=== PATIENT | female | born 1940 | race Caucasian/White ===

== ENCOUNTER 2022-12-23 08:34 | Day surgery (SDC) | payer MEDICARE ==
[~2022-12-23 08:34] MED LIST: Propofol 200 MG/20 ML SDV ONE
[2022-12-23] MEDS ORDERED: Sodium Chloride 0.9% 1,000 ML IV SCH (09:15)
== END 2022-12-23 11:35 | disposition home or self-care (01) ==
LOC: JP.SDS 08:34
PROVIDERS: ATTEND Surgery
DX: R13.10 Dysphagia, unspecified (principal); K22.2 Esophageal obstruction; K22.10 Ulcer of esophagus without bleeding; K44.9 Diaphragmatic hernia without obstruction or gangrene; E11.22 Type 2 diabetes mellitus with diabetic chronic kidney disease; N18.9 Chronic kidney disease, unspecified; D68.2 Hereditary deficiency of other clotting factors; D64.9 Anemia, unspecified
CPT/HCPCS: 43239; 43249; 88305; 88312; 88341; 88342; C1726; J2704; J7030

== ENCOUNTER 2024-06-05 10:53 | Emergency (ER) | payer MEDICARE ==
[2024-06-05 11:37] LABS: BASOPHILS PERCENT AUTO 0.2 % (0.1-1.3); EOSINOPHILS ABSOLUTE AUTO 0.04 K/uL (0.00-0.40); EOSINOPHILS PERCENT AUTO 0.4 % (0.0-5.4); HEMATOCRIT 21.9 % (34.3-46.0); IMMATURE GRAN ABSOLUTE AUTO 0.04 K/uL (0.00-0.23); IMMATURE GRAN PERCENT AUTO 0.4 % (0.0-0.7); LYMPHOCYTES ABSOLUTE AUTO 1.41 K/uL (0.8-3.3); LYMPHOCYTES PERCENT AUTO 13.2 % (11.4-47.7); MEAN CORPUSCULAR HEMOGLOBIN 24.9 pg (31.6-35.5); MEAN CORPUSCULAR HGB CONC 31.5 g/dL (31.6-35.5); MEAN CORPUSCULAR VOLUME 79.1 fL (81.4-99.0); MONOCYTES PERCENT AUTO 7.5 % (3.3-12.6); NEUTROPHILS ABSOLUTE AUTO 8.39 K/uL (1.0-7.6); NEUTROPHILS PERCENT AUTO 78.3 % (40.0-78.1); PLATELET COUNT,PLT 216 K/uL (130-375); RED BLOOD CELL COUNT 2.77 M/uL (3.77-5.24); WHITE BLOOD CELL COUNT,WBC 10.7 K/uL (3.2-11.0)
[2024-06-05 11:46] LABS: BASOPHILS ABSOLUTE AUTO 0.02 K/uL (0.00-0.10); HEMOGLOBIN 6.9 g/dL (11.2-15.5)
[2024-06-05 12:01] LABS: A/G RATIO 0.8 (1.2-2.2); ALANINE AMINOTRANSFERASE,ALT 20 U/L (12-78); ALBUMIN 2.8 g/dL (3.4-5.0); ALKALINE PHOSPHATASE 75 U/L (46-116); ASPARTATE AMNIOTRANSFERASE,AST 30 U/L (15-37); BILIRUBIN TOTAL 0.4 mg/dL (0.2-1.0); BLOOD UREA NITROGEN,BUN 48 mg/dL (7-18); CALCIUM 8.4 mg/dL (8.5-10.1); CARBON DIOXIDE,CO2 34 mmol/L (21-32); CHLORIDE,CL 97 mmol/L (100-108); CREATININE 2.6 mg/dL (0.6-1.0); EST CRCL DRUG DOSING (CG) 12.76 mL/min; ESTIMATED GFR 18 mL/min (>60); GLUCOSE RANDOM 145 mg/dL (74-106); POTASSIUM,K 3.5 mmol/L (3.6-5.2); PROTEIN TOTAL,TP 6.3 g/dL (6.4-8.2); SODIUM,NA 141 mmol/L (140-148)
[2024-06-05 12:03] LABS: ANION GAP 13.5 mmol/L (5.0-14.0)
[2024-06-05] MEDS: Sodium Chloride 0.9% 1,000 ML IV ONE (12:03)
[2024-06-05] MEDS: Pantoprazole 40 MG Vial IVPUSH ONE (12:10)
[2024-06-05] MEDS: Iopamidol 612 MG/ML 100 ML Bottle IV PRN (13:12)
[2024-06-05] MEDS: Sodium Chloride 0.9% 60 ML IV ONE (13:12)
[2024-06-05] MEDS: Sodium Chloride 0.9% 10 ML Syringe FLUSH PRN (13:12)
[2024-06-05] MEDS ORDERED: Naloxone 0.4 MG/ML SDV IVPUSH PRN (14:52)
[2024-06-05] MEDS: HYDROmorphone 0.5 MG/0.5 ML Syringe IVPUSH ONE (15:00)
[2024-06-05] MEDS: Sodium Chloride 0.9% 1,000 ML IV SCH (17:28)
== END 2024-06-05 22:47 ==
LOC: JP.ED 10:53
DX: K92.2 Gastrointestinal hemorrhage, unspecified (principal); E11.9 Type 2 diabetes mellitus without complications; Z79.84 Long term (current) use of oral hypoglycemic drugs; Z79.899 Other long term (current) drug therapy; Z87.891 Personal history of nicotine dependence
CPT/HCPCS: 36415; 36430; 70450; 74177; 80053; 85025; 86850; 86900; 86901; 86920; 86922; 87428; 96361; 96374; 96375; 99285; J2470; J7030; P9016; Q9967

== ENCOUNTER 2024-08-04 10:24 | Inpatient (IN) | payer MEDICARE ==
[2024-08-04 10:54] LABS: BASOPHILS ABSOLUTE AUTO 0.03 K/uL (0.00-0.10); BASOPHILS PERCENT AUTO 0.2 % (0.1-1.3); HEMATOCRIT 27.1 % (34.3-46.0); IMMATURE GRAN ABSOLUTE AUTO 0.15 K/uL (0.00-0.23); IMMATURE GRAN PERCENT AUTO 0.8 % (0.0-0.7); LYMPHOCYTES PERCENT AUTO 4.3 % (11.4-47.7); MEAN CORPUSCULAR HGB CONC 33.2 g/dL (31.6-35.5); MEAN CORPUSCULAR VOLUME 87.4 fL (81.4-99.0); MONOCYTES ABSOLUTE AUTO 0.71 K/uL (0.20-0.90); MONOCYTES PERCENT AUTO 3.8 % (3.3-12.6); NEUTROPHILS ABSOLUTE AUTO 17.13 K/uL (1.0-7.6); NEUTROPHILS PERCENT AUTO 90.9 % (40.0-78.1); PLATELET COUNT,PLT 197 K/uL (130-375); WHITE BLOOD CELL COUNT,WBC 18.8 K/uL (3.2-11.0)
[2024-08-04 11:23] LABS: A/G RATIO 0.8 (1.2-2.2); ALANINE AMINOTRANSFERASE,ALT 21 U/L (12-78); ALBUMIN 2.6 g/dL (3.4-5.0); ALKALINE PHOSPHATASE 147 U/L (46-116); ASPARTATE AMNIOTRANSFERASE,AST 13 U/L (15-37); BILIRUBIN TOTAL 0.5 mg/dL (0.2-1.0); BLOOD UREA NITROGEN,BUN 66 mg/dL (7-18); CALCIUM 8.2 mg/dL (8.5-10.1); CARBON DIOXIDE,CO2 21 mmol/L (21-32); CHLORIDE,CL 91 mmol/L (100-108); EST CRCL DRUG DOSING (CG) 10.74 mL/min; ESTIMATED GFR 15 mL/min (>60); POTASSIUM,K 4.6 mmol/L (3.6-5.2); SODIUM,NA 128 mmol/L (140-148)
[2024-08-04 11:24] LABS: ANION GAP 20.6 mmol/L (5.0-14.0); GLUCOSE RANDOM 682 mg/dL (74-106)
[2024-08-04 11:28] LABS: CORONAVIRUS COVID-19 NAA NEGATIVE (NEGATIVE); INFLUENZA A NAA NEGATIVE (NEGATIVE); INFLUENZA B NAA NEGATIVE (NEGATIVE); RESPIRATORY SYNCYTIAL VIR NAA NEGATIVE (NEGATIVE)
[2024-08-04] MEDS ORDERED: Glucagon,Human Recombinant 1 MG Vial IM PRN ×2 (12:16→14:58)
[2024-08-04] MEDS ORDERED: 50% Dextrose in Water 50 ML Syringe IVPUSH PRN ×2 (12:16→14:58)
[2024-08-04 12:26] LABS: BASE EXCESS VENOUS -6.2 mm/L; METHEMOGLOBIN 0.7 %; O2 SATURATION VENOUS 77.4; OXYHEMOGLOBIN 76.7 %; PCO2 VENOUS 38.8 mm/Hg; PH,VENOUS 7.311 (7.350-7.450)
[2024-08-04 12:27] LABS: CARBOXYHEMOGLOBIN < 0.5 % (0.0-1.6)
[2024-08-04] MEDS: Insulin Regular in 0.9 % NACL 100 ML IV SCH ×2 (13:19→15:58)
[2024-08-04] MEDS: cefTRIAXone 2 GM in Sodium Chloride 0.9% 50 ML IV ONE (13:27)
[2024-08-04] MEDS: Potassium Chloride 20 MEQ in Premix Bag 1 BAG IV ONE ×2 (13:27→16:37)
[2024-08-04] MEDS: Sodium Chloride 0.9% 1,000 ML IV SCH (13:28)
[2024-08-04 13:57] LABS: APPEARANCE,URINE SLIGHTLY CLOUDY (CLEAR); BILIRUBIN,URINE NEGATIVE (NEGATIVE); COLOR,URINE YELLOW (YELLOW); GLUCOSE,URINE 500 mg/dL (NEGATIVE); KETONES,URINE NEGATIVE (NEGATIVE); LEUKOCYTE ESTERASE,URINE SMALL (NEGATIVE); NITRITE,URINE NEGATIVE (NEGATIVE); OCCULT BLOOD,URINE TRACE-INTACT (NEGATIVE); PH,URINE 5.5 (5.0-8.0); PROTEIN,URINE NEGATIVE (NEGATIVE); UROBILINOGEN,URINE 0.2 EU/dL (0.2-1.0)
[2024-08-04 14:09] LABS: AMORPHOUS SEDIMENT,URINE NOT SEEN; BACTERIA,URINE MANY; EPITHELIAL CELLS,URINE RARE; MUCUS,URINE FEW; RBC,URINE 0-5 (0-5)
[2024-08-04 14:42] LABS: PHOSPHORUS 6.4 mg/dL (2.5-4.9); POTASSIUM,K 3.5 mmol/L (3.6-5.2)
[2024-08-04] MEDS ORDERED: Potassium Chloride 10% 20 MEQ/15 ML Soln 15 ML UD Cup PO PRN ×2 (14:58)
[2024-08-04] MEDS ORDERED: Potassium Chloride 20 MEQ in Premix Bag 1 BAG IV PRN (14:58)
[2024-08-04] MEDS ORDERED: Albuterol 0.083% 2.5 MG/3 ML Neb Soln NEB PRN (14:58)
[2024-08-04] MEDS ORDERED: Polyethylene Glycol 3350 Powder 17 GM Packet PO PRN (14:58)
[2024-08-04] MEDS ORDERED: Sodium Phosphate 45 MMOLE in Sodium Chloride 0.9% 250 ML IV PRN (14:58)
[2024-08-04] MEDS ORDERED: Sodium Chloride 0.9% 10 ML Syringe FLUSH PRN (14:58)
[2024-08-04] MEDS: Acetaminophen 325 MG Tab PO PRN (15:55)
[2024-08-04] MEDS: oxyCODONE 5 MG Tab PO PRN (15:56)
[2024-08-04] MEDS: Sodium Chloride 0.9% 2,000 ML IV PRN (16:34)
[2024-08-04] MEDS: Enoxaparin 30 MG/0.3 ML Syringe SUBCUT SCH (16:34)
[2024-08-04] MEDS: Aspirin 81 MG Tab.Chew PO SCH (16:35)
[2024-08-04] MEDS: glipiZIDE 5 MG Tab PO SCH (16:36)
[2024-08-04] MEDS: Tamsulosin 0.4 MG Cap.ER PO SCH (16:36)
[2024-08-04] MEDS: atorvaSTATin 20 MG Tab PO SCH (16:38)
[2024-08-04] MEDS: predniSONE 5 MG Tab PO SCH (16:39)
[2024-08-04] MEDS: Sennosides/Docusate Sodium 50-8.6 MG Tab PO SCH (16:40)
[2024-08-04] MEDS: Levothyroxine 50 MCG Tab PO SCH (16:40)
[2024-08-04] MEDS: Pantoprazole 40 MG Delayed-Release Granules 1 Packet PO SCH (16:41)
[2024-08-04] MEDS: amLODIPine 5 MG Tab PO SCH (16:46)
[2024-08-04] MEDS: Empagliflozin 10 MG Tab PO SCH (17:05)
[2024-08-04 17:35] LABS: ANION GAP 18.6 mmol/L (5.0-14.0); CALCIUM 7.9 mg/dL (8.5-10.1); CREATININE 2.9 mg/dL (0.6-1.0); EST CRCL DRUG DOSING (CG) 11.11 mL/min; POTASSIUM,K 3.6 mmol/L (3.6-5.2)
[2024-08-04] MEDS: Potassium Chloride 10% 20 MEQ/15 ML Soln 15 ML UD Cup PO PRN (18:14)
[2024-08-04] MEDS: Ondansetron 4 MG/2 ML SDV IV PRN (18:14)
[2024-08-04 19:23] LABS: CALCIUM 7.8 mg/dL (8.5-10.1); CREATININE 2.6 mg/dL (0.6-1.0); EST CRCL DRUG DOSING (CG) 11.06 mL/min; POTASSIUM,K 4.7 mmol/L (3.6-5.2)
[2024-08-04 19:25] LABS: ANION GAP 19.7 mmol/L (5.0-14.0)
[2024-08-04] MEDS: Hypromellose 0.3% Ophth Soln 15 ML Bottle EYEBOTH SCH (20:46)
[2024-08-04] MEDS: Dextrose 5%-0.45% NaCl 1,000 ML IV PRN (21:24)
[2024-08-04 21:30] LABS: MAGNESIUM 1.6 mg/dL (1.8-2.4); PHOSPHORUS 3.6 mg/dL (2.5-4.9); POTASSIUM,K 4.2 mmol/L (3.6-5.2)
[2024-08-04] MEDS: Magnesium Sulf/Wat 2 GM/50 mL 50 ML IV PRN (21:34)
[2024-08-04 23:20] LABS: CALCIUM 7.5 mg/dL (8.5-10.1); CREATININE 2.3 mg/dL (0.6-1.0); EST CRCL DRUG DOSING (CG) 12.51 mL/min; POTASSIUM,K 4.3 mmol/L (3.6-5.2)
[2024-08-04 23:27] LABS: ANION GAP 15.3 mmol/L (5.0-14.0)
[2024-08-05 03:18] LABS: CALCIUM 7.6 mg/dL (8.5-10.1); CREATININE 2.2 mg/dL (0.6-1.0); EST CRCL DRUG DOSING (CG) 13.08 mL/min; MAGNESIUM 2.2 mg/dL (1.8-2.4); PHOSPHORUS 3.8 mg/dL (2.5-4.9); POTASSIUM,K 4.5 mmol/L (3.6-5.2)
[2024-08-05 03:20] LABS: ANION GAP 14.5 mmol/L (5.0-14.0)
[2024-08-05 05:07] LABS: HEMATOCRIT 22.3 % (34.3-46.0); HEMOGLOBIN 7.4 g/dL (11.2-15.5); MEAN CORPUSCULAR HEMOGLOBIN 28.8 pg (31.6-35.5); MEAN CORPUSCULAR HGB CONC 33.2 g/dL (31.6-35.5); MEAN CORPUSCULAR VOLUME 86.8 fL (81.4-99.0); RED BLOOD CELL COUNT 2.57 M/uL (3.77-5.24); WHITE BLOOD CELL COUNT,WBC 15.3 K/uL (3.2-11.0)
[2024-08-05 07:17] LABS: HEMOGLOBIN A1C 12.5 % (4.5-6.2)
[2024-08-05 07:27] LABS: CALCIUM 7.7 mg/dL (8.5-10.1); CREATININE 2.2 mg/dL (0.6-1.0); EST CRCL DRUG DOSING (CG) 13.08 mL/min; POTASSIUM,K 4.7 mmol/L (3.6-5.2)
[2024-08-05 07:33] LABS: ANION GAP 12.7 mmol/L (5.0-14.0)
[2024-08-05 09:26] LABS: MAGNESIUM 2.2 mg/dL (1.8-2.4); PHOSPHORUS 3.1 mg/dL (2.5-4.9)
[2024-08-05] MEDS: Furosemide 40 MG Tab PO SCH (09:35)
[2024-08-05] MEDS ORDERED: Glucose Gel 15 GM in 37.5 GM Tube PO PRN (09:36)
[2024-08-05] MEDS ORDERED: 50% Dextrose in Water 50 ML Syringe IV PRN (09:36)
[2024-08-05] MEDS: Fluticasone NASAL Spray 16 GM Bottle NASBOTH SCH (10:07)
[2024-08-05] MEDS: Insulin Glargine,Human Rec. Analog 100 Units/ML 3 ML Pen SUBCUT SCH (10:08)
[2024-08-05] MEDS: Cetirizine 10 MG Tab PO SCH (10:14)
[2024-08-05] MEDS: Insulin Lispro 100 Unit/ML 3 ML KwikPen SUBCUT SCH (13:27)
[2024-08-05] MEDS: cefTRIAXone 1 GM in Sodium Chloride 0.9% 50 ML IV SCH (14:10)
[2024-08-05 17:20] LABS: ANION GAP 16.5 mmol/L (5.0-14.0); CALCIUM 8.1 mg/dL (8.5-10.1); CREATININE 2.3 mg/dL (0.6-1.0); EST CRCL DRUG DOSING (CG) 12.51 mL/min; POTASSIUM,K 4.5 mmol/L (3.6-5.2)
[2024-08-05 17:34] LABS: IRON,FE 37 ug/dL (50-170); PERCENT FE SATURATION 29 % (20-55); TOTAL IRON BINDING CAPACITY 127 ug/dl (250-450)
[2024-08-06 05:56] LABS: HEMATOCRIT 23.3 % (34.3-46.0); HEMOGLOBIN 7.8 g/dL (11.2-15.5); MEAN CORPUSCULAR HGB CONC 33.5 g/dL (31.6-35.5); MEAN CORPUSCULAR VOLUME 86.6 fL (81.4-99.0); RED BLOOD CELL COUNT 2.69 M/uL (3.77-5.24); WHITE BLOOD CELL COUNT,WBC 10.8 K/uL (3.2-11.0)
[2024-08-06 06:25] LABS: POTASSIUM,K 3.9 mmol/L (3.6-5.2)
[2024-08-06 06:26] LABS: CALCIUM 8.3 mg/dL (8.5-10.1); CREATININE 2.3 mg/dL (0.6-1.0); EST CRCL DRUG DOSING (CG) 12.51 mL/min; MAGNESIUM 2.1 mg/dL (1.8-2.4); TSH ULTRASENSITIVE 6.913 uIU/mL (0.358-3.740)
[2024-08-06 06:28] LABS: ANION GAP 14.9 mmol/L (5.0-14.0)
[2024-08-06] MEDS: Insulin Glargine,Human Rec. Analog 100 Units/ML 3 ML Pen SUBCUT SCH (08:38)
[2024-08-06] MEDS: Cephalexin 250 MG Cap PO SCH (08:39)
== END 2024-08-06 11:26 | disposition home or self-care (01) | DRG 638 ==
LOC: JP.ED 10:24 → JP.ICU 13:49
PROVIDERS: ADMIT Hospitalist; ATTEND Internal Medicine
PROC: 4A033R1 Measurement of Arterial Saturation, Peripheral, Percutaneous Approach (ICD-10-PCS; principal; 2024-08-04)
DX: E11.00 Type 2 diabetes mellitus with hyperosmolarity without nonketotic hyperglycemic-hyperosmolar coma (NKHHC) (principal); E87.20 Acidosis, unspecified; N17.9 Acute kidney failure, unspecified; Z79.890 Hormone replacement therapy; N30.00 Acute cystitis without hematuria; N18.4 Chronic kidney disease, stage 4 (severe); Z66 Do not resuscitate; H54.7 Unspecified visual loss; K21.9 Gastro-esophageal reflux disease without esophagitis; M19.90 Unspecified osteoarthritis, unspecified site; L89.301 Pressure ulcer of unspecified buttock, stage 1; F98.8 Other specified behavioral and emotional disorders with onset usually occurring in childhood and adolescence; D64.9 Anemia, unspecified; B96.20 Unspecified Escherichia coli [E. coli] as the cause of diseases classified elsewhere; I25.10 Atherosclerotic heart disease of native coronary artery without angina pectoris; E61.1 Iron deficiency; Z98.49 Cataract extraction status, unspecified eye; Z98.890 Other specified postprocedural states; Z79.899 Other long term (current) drug therapy; Z79.82 Long term (current) use of aspirin; Z79.52 Long term (current) use of systemic steroids; Z79.84 Long term (current) use of oral hypoglycemic drugs
CPT/HCPCS: 0241U; 36415; 71045; 80048; 80053; 81001; 82009; 82803; 82947; 83036; 83550; 83605; 83735; 84100; 84132; 84443; 85018; 85025; 85027; 87040; 87086; 87088; 87186; 96365; 96368; 99222; 99232; 99239; 99285; 99284; A9270-GY; J0696; J1650; J1815; J1815-GY; J2405; J3475; J3480; J7030; J7512

== ENCOUNTER 2024-10-04 11:22 | Inpatient (IN) | payer MEDICARE ==
[2024-10-04 12:36] LABS: BASOPHILS ABSOLUTE AUTO 0.03 K/uL (0.00-0.10); BASOPHILS PERCENT AUTO 0.3 % (0.1-1.3); EOSINOPHILS ABSOLUTE AUTO 0.03 K/uL (0.00-0.40); EOSINOPHILS PERCENT AUTO 0.3 % (0.0-5.4); HEMATOCRIT 24.9 % (34.3-46.0); HEMOGLOBIN 7.9 g/dL (11.2-15.5); IMMATURE GRAN ABSOLUTE AUTO 0.05 K/uL (0.00-0.23); IMMATURE GRAN PERCENT AUTO 0.5 % (0.0-0.7); LYMPHOCYTES ABSOLUTE AUTO 0.55 K/uL (0.8-3.3); LYMPHOCYTES PERCENT AUTO 5.1 % (11.4-47.7); MEAN CORPUSCULAR HEMOGLOBIN 29.3 pg (31.6-35.5); MEAN CORPUSCULAR HGB CONC 31.7 g/dL (31.6-35.5); MEAN CORPUSCULAR VOLUME 92.2 fL (81.4-99.0); MONOCYTES ABSOLUTE AUTO 0.42 K/uL (0.20-0.90); MONOCYTES PERCENT AUTO 3.9 % (3.3-12.6); NEUTROPHILS ABSOLUTE AUTO 9.61 K/uL (1.0-7.6); NEUTROPHILS PERCENT AUTO 89.9 % (40.0-78.1); PLATELET COUNT,PLT 283 K/uL (130-375); WHITE BLOOD CELL COUNT,WBC 10.7 K/uL (3.2-11.0)
[2024-10-04 12:55] LABS: CALCIUM 8.6 mg/dL (8.5-10.1); CREATININE 2.7 mg/dL (0.6-1.0); EST CRCL DRUG DOSING (CG) 11.93 mL/min
[2024-10-04 12:58] LABS: INR 1.1; PROTHROMBIN TIME 11.2 sec (9.2-10.6); PTT,PARTIAL THROMBOPLSTIN TIME 29.4 sec (21.8-27.3)
[2024-10-04] MEDS: ceFAZolin 2 GM in Premix Bag 1 BAG IV ONE (13:04)
[2024-10-04] MEDS ORDERED: Naloxone 0.4 MG/ML SDV IVPUSH PRN (13:11)
[2024-10-04] MEDS: Sodium Chloride 0.9% 1,000 ML IV ONE (13:23)
[2024-10-04] MEDS: fentaNYL 50 MCG/ML SDV IVPUSH ONE ×2 (13:24→14:50)
[2024-10-04] MEDS: Potassium Chloride 10 MEQ in Premix Bag 1 BAG IV SCH ×2 (13:27→19:44)
[2024-10-04] MEDS ORDERED: fentaNYL 100 MCG/2 ML SDV ONE (16:29)
[2024-10-04] MEDS ORDERED: Propofol 200 MG/20 ML SDV ONE (16:30)
[2024-10-04] MEDS ORDERED: Sodium Chloride 0.9% 10 ML ONE ×2 (17:01→17:03)
[2024-10-04] MEDS ORDERED: ePHEDrine 50 MG/ML SDV ONE (17:01)
[2024-10-04] MEDS ORDERED: ceFAZolin 1 GM Vial ONE (17:03)
[2024-10-04] MEDS ORDERED: Lactated Ringers 1,000 ML ONE (17:17)
[2024-10-04] MEDS ORDERED: Magnesium Hydroxide 400 MG/5 ML Susp 30 ML Cup PO PRN (18:38)
[2024-10-04] MEDS ORDERED: HYDROmorphone 1 MG/ML Syringe IVPUSH PRN (18:38)
[2024-10-04] MEDS ORDERED: Sennosides/Docusate Sodium 50-8.6 MG Tab PO PRN (18:38)
[2024-10-04] MEDS ORDERED: Ondansetron 4 MG/2 ML SDV IV PRN (18:38)
[2024-10-04] MEDS: Sodium Chloride 0.9% 1,000 ML IV SCH (19:13)
[2024-10-04 19:37] LABS: HEMOGLOBIN 7.6 g/dL (11.2-15.5)
[2024-10-04] MEDS: oxyCODONE 5 MG Tab PO PRN (19:43)
[2024-10-04] MEDS: Insulin Lispro 100 Unit/ML 3 ML KwikPen SUBCUT SCH (19:51)
[2024-10-04] MEDS: Insulin Lispro 100 Unit/ML 3 ML KwikPen SUBCUT ONE (21:29)
[2024-10-04] MEDS: Hypromellose 0.3% Ophth Soln 15 ML Bottle EYEBOTH SCH (21:30)
[2024-10-04] MEDS: Acetaminophen 500 MG Tab PO SCH (21:30)
[2024-10-05 06:18] LABS: HEMATOCRIT 26.6 % (34.3-46.0); HEMOGLOBIN 8.6 g/dL (11.2-15.5); MEAN CORPUSCULAR HEMOGLOBIN 28.8 pg (31.6-35.5); MEAN CORPUSCULAR HGB CONC 32.3 g/dL (31.6-35.5); RED BLOOD CELL COUNT 2.99 M/uL (3.77-5.24); WHITE BLOOD CELL COUNT,WBC 9.3 K/uL (3.2-11.0)
[2024-10-05 06:34] LABS: CREATININE 2.1 mg/dL (0.6-1.0); EST CRCL DRUG DOSING (CG) 15.34 mL/min; POTASSIUM,K 3.3 mmol/L (3.6-5.2)
[2024-10-05 06:37] LABS: ANION GAP 15.3 mmol/L (5.0-14.0)
[2024-10-05] MEDS: HYDROmorphone 0.5 MG/0.5 ML Syringe IVPUSH PRN (07:41)
[2024-10-05] MEDS: Pantoprazole 40 MG Delayed-Release Granules 1 Packet PO SCH (07:56)
[2024-10-05] MEDS: Levothyroxine 50 MCG Tab PO SCH (07:56)
[2024-10-05] MEDS: predniSONE 5 MG Tab PO SCH (08:00)
[2024-10-05] MEDS: Cholecalciferol (Vitamin D3) 25 MCG Tab PO SCH (08:00)
[2024-10-05] MEDS: Hypromellose 0.3% Ophth Soln 15 ML Bottle EYEBOTH SCH (08:00)
[2024-10-05] MEDS: Aspirin 81 MG Tab.EC PO SCH (08:01)
[2024-10-05] MEDS: Folic Acid 1 MG Tab PO SCH (08:01)
[2024-10-05] MEDS: Cetirizine 10 MG Tab PO SCH (08:01)
[2024-10-05] MEDS: Tamsulosin 0.4 MG Cap.ER PO SCH (08:01)
[2024-10-05] MEDS: Sennosides/Docusate Sodium 50-8.6 MG Tab PO SCH (08:01)
[2024-10-05] MEDS: Empagliflozin 10 MG Tab PO SCH (08:01)
[2024-10-05] MEDS: Apixaban 2.5 MG Tab PO SCH (08:02)
[2024-10-05] MEDS: atorvaSTATin 20 MG Tab PO SCH (08:02)
[2024-10-05] MEDS: Insulin Glargine,Human Rec. Analog 100 Units/ML 3 ML Pen SUBCUT SCH (08:02)
[2024-10-05] MEDS ORDERED: Pantoprazole 40 MG Delayed-Release Granules 1 Packet PO SCH (09:00)
[2024-10-05] MEDS ORDERED: Levothyroxine 50 MCG Tab PO SCH (09:00)
[2024-10-05] MEDS: Potassium Chloride 20 MEQ Tab.ER PO ONE (10:14)
[2024-10-05] MEDS: Fluticasone NASAL Spray 16 GM Bottle NASBOTH PRN (21:13)
[2024-10-06 05:47] LABS: HEMATOCRIT 24.4 % (34.3-46.0); HEMOGLOBIN 7.9 g/dL (11.2-15.5); MEAN CORPUSCULAR HEMOGLOBIN 28.7 pg (31.6-35.5); MEAN CORPUSCULAR HGB CONC 32.4 g/dL (31.6-35.5); MEAN CORPUSCULAR VOLUME 88.7 fL (81.4-99.0); RED BLOOD CELL COUNT 2.75 M/uL (3.77-5.24); WHITE BLOOD CELL COUNT,WBC 7.9 K/uL (3.2-11.0)
[2024-10-06 06:04] LABS: CALCIUM 8.2 mg/dL (8.5-10.1); CREATININE 2.4 mg/dL (0.6-1.0); EST CRCL DRUG DOSING (CG) 13.42 mL/min; POTASSIUM,K 4.8 mmol/L (3.6-5.2)
[2024-10-06 06:05] LABS: ANION GAP 11.8 mmol/L (5.0-14.0)
[2024-10-06] MEDS: Diclofenac Sodium 1% Gel 100 GM Tube TOP SCH (12:37)
[2024-10-06] MEDS: Ondansetron 4 MG Tab.DIS PO PRN (21:06)
[2024-10-07 05:43] LABS: HEMOGLOBIN 7.7 g/dL (11.2-15.5); MEAN CORPUSCULAR HEMOGLOBIN 28.6 pg (31.6-35.5); MEAN CORPUSCULAR HGB CONC 32.1 g/dL (31.6-35.5); MEAN CORPUSCULAR VOLUME 89.2 fL (81.4-99.0); RED BLOOD CELL COUNT 2.69 M/uL (3.77-5.24); WHITE BLOOD CELL COUNT,WBC 8.8 K/uL (3.2-11.0)
[2024-10-07 05:56] LABS: CREATININE 2.4 mg/dL (0.6-1.0); EST CRCL DRUG DOSING (CG) 13.42 mL/min; POTASSIUM,K 4.3 mmol/L (3.6-5.2)
[2024-10-07 05:57] LABS: ANION GAP 13.3 mmol/L (5.0-14.0)
[2024-10-07] MEDS: Fluticasone NASAL Spray 16 GM Bottle NASBOTH SCH (10:42)
== END 2024-10-08 14:50 | DRG 522 ==
LOC: JP.ED 11:22 → JP.ACU 15:40 → JP.MS 19:00
PROVIDERS: ADMIT Specialist; ATTEND Specialist
PROC: 0SRR0JA Replacement of Right Hip Joint, Femoral Surface with Synthetic Substitute, Uncemented, Open Approach (ICD-10-PCS; principal; 2024-10-04 16:30)
DX: S72.001A Fracture of unspecified part of neck of right femur, initial encounter for closed fracture (principal); S72.011A Unspecified intracapsular fracture of right femur, initial encounter for closed fracture; N18.4 Chronic kidney disease, stage 4 (severe); D68.2 Hereditary deficiency of other clotting factors; J30.9 Allergic rhinitis, unspecified; E11.9 Type 2 diabetes mellitus without complications; H54.7 Unspecified visual loss; I50.9 Heart failure, unspecified; Z79.84 Long term (current) use of oral hypoglycemic drugs; W19.XXXA Unspecified fall, initial encounter; K21.9 Gastro-esophageal reflux disease without esophagitis; M19.90 Unspecified osteoarthritis, unspecified site; M81.0 Age-related osteoporosis without current pathological fracture; F98.8 Other specified behavioral and emotional disorders with onset usually occurring in childhood and adolescence; E11.22 Type 2 diabetes mellitus with diabetic chronic kidney disease; E03.9 Hypothyroidism, unspecified; E55.9 Vitamin D deficiency, unspecified; E61.1 Iron deficiency; E87.6 Hypokalemia; D63.1 Anemia in chronic kidney disease; L89.151 Pressure ulcer of sacral region, stage 1; Z79.52 Long term (current) use of systemic steroids; Z79.899 Other long term (current) drug therapy; Z79.4 Long term (current) use of insulin; Z98.890 Other specified postprocedural states; Z79.82 Long term (current) use of aspirin; Z98.49 Cataract extraction status, unspecified eye
CPT/HCPCS: 36415; 72170 ×2; 73502 ×2; 80048; 85025; 85610; 85730; 86850; 86900; 86901; 86920; 86922; 96365; 96367; 96375; 99285; C1713; C1776 ×3; J0690 ×2; J1815; J2704; J3010 ×3; J3480; J7030; J7120; 01230-QZ; 36430; 82947; 85014; 85018; 85027; 97162-GP; 97165-GO; 97530-GP; 97535-GO; 99222; 99232; 99239; 99283; A9270-GY; J7512; P9016; Q0162

== ENCOUNTER 2024-11-13 18:23 | Inpatient (IN) | payer MEDICARE ==
[2024-11-13 21:01] LABS: BASOPHILS PERCENT AUTO 0.1 % (0.1-1.3); EOSINOPHILS PERCENT AUTO 0.0 % (0.0-5.4); IMMATURE GRAN ABSOLUTE AUTO 0.13 K/uL (0.00-0.23); IMMATURE GRAN PERCENT AUTO 0.9 % (0.0-0.7); LYMPHOCYTES ABSOLUTE AUTO 0.59 K/uL (0.8-3.3); LYMPHOCYTES PERCENT AUTO 4.0 % (11.4-47.7); MONOCYTES ABSOLUTE AUTO 0.52 K/uL (0.20-0.90); MONOCYTES PERCENT AUTO 3.5 % (3.3-12.6); NEUTROPHILS ABSOLUTE AUTO 13.51 K/uL (1.0-7.6); NEUTROPHILS PERCENT AUTO 91.5 % (40.0-78.1); PLATELET COUNT,PLT 286 K/uL (130-375); RED BLOOD CELL COUNT 2.46 M/uL (3.77-5.24); WHITE BLOOD CELL COUNT,WBC 14.8 K/uL (3.2-11.0)
[2024-11-13] MEDS: Ondansetron 4 MG/2 ML SDV IVPUSH ONE (21:02)
[2024-11-13 21:05] LABS: BASOPHILS ABSOLUTE AUTO 0.01 K/uL (0.00-0.10); EOSINOPHILS ABSOLUTE AUTO 0.00 K/uL (0.00-0.40)
[2024-11-13 21:29] LABS: A/G RATIO 0.7 (1.2-2.2); ALANINE AMINOTRANSFERASE,ALT 18 U/L (12-78); ASPARTATE AMNIOTRANSFERASE,AST 16 U/L (15-37); BILIRUBIN TOTAL 0.8 mg/dL (0.2-1.0); CARBON DIOXIDE,CO2 20 mmol/L (21-32); CHLORIDE,CL 96 mmol/L (100-108); CREATININE 2.8 mg/dL (0.6-1.0); EST CRCL DRUG DOSING (CG) 11.09 mL/min; ESTIMATED GFR 16 mL/min (>60); GLUCOSE RANDOM 400 mg/dL (74-106); POTASSIUM,K 3.1 mmol/L (3.6-5.2); PROTEIN TOTAL,TP 6.8 g/dL (6.4-8.2); SODIUM,NA 131 mmol/L (140-148)
[2024-11-13 21:31] LABS: BLOOD UREA NITROGEN,BUN 90 mg/dL (7-18)
[2024-11-14] MEDS ORDERED: Insulin Lispro 100 Unit/ML 3 ML KwikPen SUBCUT SCH (00:26)
[2024-11-14] MEDS ORDERED: Ondansetron 4 MG Tab.DIS PO PRN (00:26)
[2024-11-14] MEDS ORDERED: Sodium Chloride 0.9% 10 ML Syringe FLUSH PRN (00:26)
[2024-11-14] MEDS ORDERED: Ondansetron 4 MG/2 ML SDV IV PRN (00:26)
[2024-11-14 01:23] LABS: APPEARANCE,URINE CLOUDY (CLEAR); GLUCOSE,URINE 500 mg/dL (NEGATIVE); OCCULT BLOOD,URINE SMALL (NEGATIVE)
[2024-11-14 01:25] LABS: EPITHELIAL CELLS,URINE MODERATE
[2024-11-14] MEDS: Insulin Lispro 100 Unit/ML 3 ML KwikPen SUBCUT SCH (01:50)
[2024-11-14] MEDS: Potassium Chloride 20 MEQ Tab.ER PO ONE (01:51)
[2024-11-14 05:58] LABS: BASOPHILS PERCENT AUTO 0.1 % (0.1-1.3); EOSINOPHILS ABSOLUTE AUTO 0.03 K/uL (0.00-0.40); EOSINOPHILS PERCENT AUTO 0.2 % (0.0-5.4); IMMATURE GRAN ABSOLUTE AUTO 0.13 K/uL (0.00-0.23); IMMATURE GRAN PERCENT AUTO 1.0 % (0.0-0.7); LYMPHOCYTES ABSOLUTE AUTO 0.80 K/uL (0.8-3.3); LYMPHOCYTES PERCENT AUTO 6.0 % (11.4-47.7); MONOCYTES ABSOLUTE AUTO 0.52 K/uL (0.20-0.90); MONOCYTES PERCENT AUTO 3.9 % (3.3-12.6); NEUTROPHILS ABSOLUTE AUTO 11.84 K/uL (1.0-7.6); NEUTROPHILS PERCENT AUTO 88.8 % (40.0-78.1); PLATELET COUNT,PLT 257 K/uL (130-375); RED BLOOD CELL COUNT 2.74 M/uL (3.77-5.24); WHITE BLOOD CELL COUNT,WBC 13.3 K/uL (3.2-11.0)
[2024-11-14 06:18] LABS: CARBON DIOXIDE,CO2 22.0 mmol/L (21-32); CHLORIDE,CL 97.0 mmol/L (100-108); CREATININE 2.7 mg/dL (0.6-1.0); EST CRCL DRUG DOSING (CG) 10.5 mL/min; ESTIMATED GFR 17.0 mL/min (>60); POTASSIUM,K 3.1 mmol/L (3.6-5.2); SODIUM,NA 131.0 mmol/L (140-148)
[2024-11-14 06:19] LABS: BLOOD UREA NITROGEN,BUN 87.0 mg/dL (7-18); GLUCOSE RANDOM 420.0 mg/dL (74-106)
[2024-11-14 06:27] LABS: BASOPHILS ABSOLUTE AUTO 0.02 K/uL (0.00-0.10)
[2024-11-14] MEDS ORDERED: 50% Dextrose in Water 50 ML Syringe IVPUSH PRN (06:28)
[2024-11-14] MEDS: Insulin Lispro 100 Unit/ML 3 ML KwikPen SUBCUT ONE (06:35)
[2024-11-14] MEDS: Lactobacillus Rhamnosus GG (Probiotic) Cap PO SCH (08:49)
[2024-11-14] MEDS: Hypromellose 0.3% Ophth Soln 15 ML Bottle EYEBOTH SCH (08:50)
[2024-11-14] MEDS: Fluticasone NASAL Spray 16 GM Bottle NAS SCH (08:50)
[2024-11-14] MEDS: Sennosides/Docusate Sodium 50-8.6 MG Tab PO SCH (08:51)
[2024-11-14] MEDS: Cholecalciferol (Vitamin D3) 25 MCG Tab PO SCH (08:51)
[2024-11-14] MEDS: Insulin Glargine,Human Rec. Analog 100 Units/ML 3 ML Pen SUBCUT SCH (08:55)
[2024-11-14] MEDS ORDERED: Propofol 200 MG/20 ML SDV ONE (10:40)
[2024-11-14] MEDS ORDERED: ePHEDrine 50 MG/ML SDV ONE (10:40)
[2024-11-14] MEDS ORDERED: Succinylcholine 200 MG/10 ML MDV ONE (10:40)
[2024-11-14] MEDS: 50% Dextrose in Water 50 ML Syringe IVPUSH PRN (11:33)
[2024-11-14] MEDS ORDERED: fentaNYL 100 MCG/2 ML SDV ONE (12:24)
[2024-11-14] MEDS ORDERED: Ondansetron 4 MG/2 ML SDV ONE (12:30)
[2024-11-14] MEDS ORDERED: Glycopyrrolate 0.2 MG/ML 5 ML MDV ONE (12:48)
[2024-11-14] MEDS: 50% Dextrose in Water 50 ML Syringe IVPUSH ONE (13:43)
[2024-11-14] MEDS: Sennosides/Docusate Sodium 50-8.6 MG Tab PO PRN (20:09)
[2024-11-15 05:53] LABS: PLATELET COUNT,PLT 260.0 K/uL (130-375); RED BLOOD CELL COUNT 2.74 M/uL (3.77-5.24); WHITE BLOOD CELL COUNT,WBC 13.5 K/uL (3.2-11.0)
[2024-11-15 06:08] LABS: IRON,FE 15 ug/dL (50-170); PERCENT FE SATURATION 9 % (20-55)
[2024-11-15 06:20] LABS: CARBON DIOXIDE,CO2 23.0 mmol/L (21-32); CHLORIDE,CL 102.0 mmol/L (100-108); CREATININE 2.3 mg/dL (0.6-1.0); EST CRCL DRUG DOSING (CG) 12.33 mL/min; ESTIMATED GFR 21.0 mL/min (>60); GLUCOSE RANDOM 88.0 mg/dL (74-106); POTASSIUM,K 3.7 mmol/L (3.6-5.2); SODIUM,NA 137.0 mmol/L (140-148)
[2024-11-15 06:28] LABS: BLOOD UREA NITROGEN,BUN 78.0 mg/dL (7-18)
[2024-11-15] MEDS: Fluticasone NASAL Spray 16 GM Bottle NASBOTH SCH (21:24)
[2024-11-16 05:52] LABS: PLATELET COUNT,PLT 268.0 K/uL (130-375); RED BLOOD CELL COUNT 2.65 M/uL (3.77-5.24); WHITE BLOOD CELL COUNT,WBC 12.2 K/uL (3.2-11.0)
[2024-11-16] MEDS: Magnesium Hydroxide 400 MG/5 ML Susp 30 ML Cup PO PRN (06:06)
[2024-11-16 06:09] LABS: CARBON DIOXIDE,CO2 23.0 mmol/L (21-32); CHLORIDE,CL 104.0 mmol/L (100-108); CREATININE 2.3 mg/dL (0.6-1.0); EST CRCL DRUG DOSING (CG) 12.33 mL/min; ESTIMATED GFR 21.0 mL/min (>60); GLUCOSE RANDOM 56.0 mg/dL (74-106); POTASSIUM,K 3.5 mmol/L (3.6-5.2); SODIUM,NA 138.0 mmol/L (140-148)
[2024-11-16 06:13] LABS: BLOOD UREA NITROGEN,BUN 82.0 mg/dL (7-18)
[2024-11-16] MEDS: Potassium Chloride 20 MEQ Tab.ER PO ONE (08:09)
[2024-11-16] MEDS: Insulin Glargine,Human Rec. Analog 100 Units/ML 3 ML Pen SUBCUT SCH (08:49)
[2024-11-17] MEDS: Insulin Glargine,Human Rec. Analog 100 Units/ML 3 ML Pen SUBCUT SCH (09:40)
[2024-11-17] MEDS ORDERED: 50% Dextrose in Water 50 ML Syringe IVPUSH PRN (21:18)
[2024-11-18 05:45] LABS: PLATELET COUNT,PLT 265.0 K/uL (130-375); RED BLOOD CELL COUNT 2.53 M/uL (3.77-5.24); WHITE BLOOD CELL COUNT,WBC 8.3 K/uL (3.2-11.0)
[2024-11-18 06:03] LABS: CARBON DIOXIDE,CO2 23.0 mmol/L (21-32); CHLORIDE,CL 101.0 mmol/L (100-108); CREATININE 2.5 mg/dL (0.6-1.0); EST CRCL DRUG DOSING (CG) 11.34 mL/min; ESTIMATED GFR 19.0 mL/min (>60); GLUCOSE RANDOM 232.0 mg/dL (74-106); POTASSIUM,K 3.9 mmol/L (3.6-5.2); SODIUM,NA 135.0 mmol/L (140-148)
[2024-11-18 06:06] LABS: BLOOD UREA NITROGEN,BUN 85.0 mg/dL (7-18)
[2024-11-18] MEDS: Sennosides/Docusate Sodium 50-8.6 MG Tab PO SCH (20:15)
[2024-11-19 06:04] LABS: CARBON DIOXIDE,CO2 26.0 mmol/L (21-32); CHLORIDE,CL 103.0 mmol/L (100-108); CREATININE 2.3 mg/dL (0.6-1.0); EST CRCL DRUG DOSING (CG) 12.33 mL/min; ESTIMATED GFR 21.0 mL/min (>60); GLUCOSE RANDOM 146.0 mg/dL (74-106); POTASSIUM,K 4.4 mmol/L (3.6-5.2); SODIUM,NA 137.0 mmol/L (140-148)
[2024-11-19 06:17] LABS: BLOOD UREA NITROGEN,BUN 83.0 mg/dL (7-18)
[2024-11-19] MEDS: Insulin Glargine,Human Rec. Analog 100 Units/ML 3 ML Pen SUBCUT SCH (09:00)
[2024-11-21] MEDS: Insulin Glargine,Human Rec. Analog 100 Units/ML 3 ML Pen SUBCUT SCH (11:20)
[2024-11-22] MEDS: Insulin Lispro 100 Unit/ML 3 ML KwikPen SUBCUT ONE (21:41)
== END 2024-11-23 11:16 | disposition hospice, home (50) | DRG 467 ==
LOC: JP.ED 18:23 → EEVIPCON 23:52 → JP.MS 23:52
PROVIDERS: ADMIT Nurse Practitioner; ATTEND Hospitalist
PROC: 0SWR0JZ Revision of Synthetic Substitute in Right Hip Joint, Femoral Surface, Open Approach (ICD-10-PCS; 2024-11-14)
PROC: 0SC90ZZ Extirpation of Matter from Right Hip Joint, Open Approach (ICD-10-PCS; 2024-11-14)
PROC: 30233N1 Transfusion of Nonautologous Red Blood Cells into Peripheral Vein, Percutaneous Approach (ICD-10-PCS; principal; 2024-11-14 12:05)
PROC: 3E03329 Introduction of Other Anti-infective into Peripheral Vein, Percutaneous Approach (ICD-10-PCS; principal; 2024-11-14 12:05)
DX: R42 Dizziness and giddiness (principal); N18.9 Chronic kidney disease, unspecified; T84.020A Dislocation of internal right hip prosthesis, initial encounter; I50.9 Heart failure, unspecified; D62 Acute posthemorrhagic anemia; E11.9 Type 2 diabetes mellitus without complications; E87.1 Hypo-osmolality and hyponatremia; R73.9 Hyperglycemia, unspecified; I50.32 Chronic diastolic (congestive) heart failure; N18.4 Chronic kidney disease, stage 4 (severe); N30.00 Acute cystitis without hematuria; M06.9 Rheumatoid arthritis, unspecified; Z51.5 Encounter for palliative care; Z66 Do not resuscitate; B96.20 Unspecified Escherichia coli [E. coli] as the cause of diseases classified elsewhere; L89.301 Pressure ulcer of unspecified buttock, stage 1; H54.7 Unspecified visual loss; K21.9 Gastro-esophageal reflux disease without esophagitis; M81.0 Age-related osteoporosis without current pathological fracture; F98.8 Other specified behavioral and emotional disorders with onset usually occurring in childhood and adolescence; E03.9 Hypothyroidism, unspecified; Z96.641 Presence of right artificial hip joint; D63.1 Anemia in chronic kidney disease; E11.649 Type 2 diabetes mellitus with hypoglycemia without coma; R53.1 Weakness; E11.22 Type 2 diabetes mellitus with diabetic chronic kidney disease; E11.65 Type 2 diabetes mellitus with hyperglycemia; E87.6 Hypokalemia; Z79.899 Other long term (current) drug therapy; Z79.82 Long term (current) use of aspirin; Z98.49 Cataract extraction status, unspecified eye; Z86.0100 Personal history of colon polyps, unspecified; Z87.81 Personal history of (healed) traumatic fracture; Z98.890 Other specified postprocedural states; Z87.891 Personal history of nicotine dependence; Z79.890 Hormone replacement therapy; Z79.4 Long term (current) use of insulin; Z79.01 Long term (current) use of anticoagulants; W18.30XA Fall on same level, unspecified, initial encounter; Y92.89 Other specified places as the place of occurrence of the external cause
CPT/HCPCS: 01210-QZ; 36415; 36430; 51798; 71045; 71045-26; 72170; 72170-26; 73502-RT; 80048; 80053; 81001; 82728; 82947; 83550; 83735; 84443; 85018; 85025; 85027; 86850; 86900; 86901; 86920; 86922; 87086; 87088; 87186; 96374; 96375; 97110-GP; 97161-GP; 97165-GO; 97530-GP; 99222; 99231; 99232; 99233; 99238; 99284; 99285-25; A9270-GY; J0330; J0696; J1596; J1815-GY; J2270; J2405; J2704; J2710; J3010; J3480; J3490; J7512; P9016